=== PATIENT | male | born 1965 | race Caucasian/White ===

== ENCOUNTER → 2019-06-27 | Outpatient (CLI) | payer BC ==
[~2019-06-27] MED LIST: ADVIL200 MG PO; AMITRIPTYLINE H25 M1 PO; BUSPAR10 MG PO; CARAFATE 1GM1 G PO; CARDIZEM120 MG PO; CENTRUM1 TA1 PO; CLARITIN 1010 MG/TAB PO; COZAAR 50MG50 MG/TAB PO; FIORICET 325 MG1 TA1 PO; LIPITOR 10MG10 MG PO; PRILOSEC 20MG20 MG PO; PROAIR HFA0.09 MG/AC IH; SYNTHROID0.088 MG/T PO; ULTRAM 50MG TAB50 MG PO; VITAMINC1000TA PO; WELLBUTRIN SR150 M1 PO
== END ==
LOC: COL.RAD 11:53
DX: G43.909 Migraine, unspecified, not intractable, without status migrainosus (principal)
CPT/HCPCS: A9585

== ENCOUNTER → 2019-07-06 | Outpatient (CLI) | payer BC | LOC: COL.CARD 09:48 | DX: R44.1 Visual hallucinations (principal); G43.909 Migraine, unspecified, not intractable, without status migrainosus ==

== ENCOUNTER → 2020-04-10 | Outpatient (CLI) | payer OTHER | LOC: COL.RAD 13:04 | DX: H53.9 Unspecified visual disturbance (principal); H47.10 Unspecified papilledema; R90.82 White matter disease, unspecified ==

== ENCOUNTER 2020-05-23 09:59 | Outpatient (CLI) | payer OTHER ==
[2020-05-23] VITALS (7 sets, daily range): BP systolic 113–156; BP diastolic 73–95; PULSE 64–82
[~2020-05-23] VITALS: Ht 172.7 cm; Wt 105.9 kg
[~2020-05-23 09:59] MED LIST changes: +CARTIA XT180 MG PO; +COREG 6.256.25 MG/TA PO; +COZAAR100 MG PO; +DESYREL 100MG100 MG PO; +LIORESAL 1010 MG/TAB PO; +MAG-OX 400400 MG/TAB PO
[2020-05-23 11:40] LABS: CSF APPEARANCE CLEAR; CSF COLOR COLORLESS
[2020-05-23 11:41] LABS: CSF RBC 5 /mm3 (0-0)
[2020-05-23 12:01] LABS: GLUCOSE,CSF 55 mg/dL (40-70); TOTAL PROTEIN,CSF 37 mg/dL (15-45)
[2020-05-23 12:08] LABS: CSF MONONUCLEAR 100 % (70-100); CSF POLYMORPHONUCLEAR 0 % (0-6)
== END 2020-05-23 13:05 | disposition home or self-care (01) ==
LOC: COL.RAD 09:59
PROVIDERS: Psychiatry & Neurology Neurology
DX: H47.10 Unspecified papilledema (principal); H53.9 Unspecified visual disturbance